=== PATIENT | male | born 1995 | race Native Hawaiian/Other Pacific Islander ===

== ENCOUNTER 2023-08-25 17:08 | Emergency (ER) | payer OTHER ==
[~2023-08-25] VITALS: Ht 167.6 cm; Wt 93.2 kg
[2023-08-25 17:40] VITALS: TEMP 98.1
[2023-08-25 20:15] VITALS: BP 124/69; PULSE 58
== END 2023-08-25 20:15 | disposition home or self-care (01) ==
LOC: COL.ER 17:08
DX: S93.401A Sprain of unspecified ligament of right ankle, initial encounter (principal); Z28.311 Partially vaccinated for COVID-19; X58.XXXA Exposure to other specified factors, initial encounter
CPT/HCPCS: J1885